=== PATIENT | female | born 1955 | race Caucasian/White ===

== ENCOUNTER → 2021-10-07 | Day surgery (SDC) | payer MEDICARE, OTHER ==
[~2021-10-07] VITALS: Ht 154.9 cm; Wt 76.2 kg
[~2021-10-07] MED LIST: ASPIRIN EC81 MG PO; ATENOLOL50 MG PO; ATORVASTATIN CA10 MG PO; BUPROPION XL300 MG PO; COLON HEALTH PO; MEGA BIOTIN10000 MCG PO; METFORMIN HCL500 M1 PO; PRILOSEC20 MG PO; TRIAMTERENE-HC1 EAC1 PO; VITAMIN B122500 MCG PO; VITAMIN D350 MC3 PO
[2021-10-07 08:09] LABS: HCT 38.8 % (37.0-47.0); HGB 12.9 g/dl (12.5-16.0); MCH 29.5 pg (25.0-31.0); MCHC 33.2 g/dL (32.0-36.0); MCV 88.6 fL (78.0-100.0); MPV 10.9 fL (6.0-9.5); RBC 4.38 M/uL (4.20-5.40); RDW 12.8 % (11.5-14.0)
[2021-10-07 09:43] LABS: ALBUMIN 4.1 g/dL (3.4-5.0); BUN/CREAT RATIO (CALC) 22.2 RATIO; CREATININE 0.72 mg/dL (0.51-0.95); GLOBULIN (CALCULATION) 3.2 g/dL; POTASSIUM 3.5 mmol/L (3.5-5.1); TOTAL PROTEIN 7.3 g/dL (6.4-8.2)
[2021-10-07 16:05] LABS: BILIRUBIN - TOTAL 0.4 mg/dL (0.2-1.0)
== END | disposition home or self-care (01) ==
LOC: FAS 08-25 09:30
PROVIDERS: Surgery
DX: R19.5 Other fecal abnormalities (principal); R19.7 Diarrhea, unspecified; K31.9 Disease of stomach and duodenum, unspecified; K63.5 Polyp of colon; K21.9 Gastro-esophageal reflux disease without esophagitis; K29.60 Other gastritis without bleeding; K57.30 Diverticulosis of large intestine without perforation or abscess without bleeding; K44.9 Diaphragmatic hernia without obstruction or gangrene; I10 Essential (primary) hypertension; E11.9 Type 2 diabetes mellitus without complications; Z88.0 Allergy status to penicillin
CPT/HCPCS: 36415; 80053; 82962; J0690; J1170; J1610; J1956; J2704; J7120